=== PATIENT | female | born 1960 | race Caucasian/White ===

== ENCOUNTER 2016-08-07 15:30 | Outpatient (RCR) | payer OTHER ==
[~2016-08-07 15:30] MED LIST: ESTRACE0.5 MG PO; LOMOTIL 0.025 M1 TAB PO; NASONEX SPRAY17 GM NAS; PRILOSEC 20MG20 MG PO; PROBIOTICA100 Milli1 PO; ZYRTEC 10MG10 MG PO
== END 2016-09-05 09:01 | disposition home or self-care (01) ==
LOC: MKS.ESL.PT 15:30
DX: M76.30 Iliotibial band syndrome, unspecified leg (principal); M70.71 Other bursitis of hip, right hip

== ENCOUNTER → 2017-06-12 | Outpatient (CLI) | payer BC | LOC: MC.RAD 14:50 | DX: Z12.31 Encounter for screening mammogram for malignant neoplasm of breast (principal) ==

== ENCOUNTER → 2017-08-17 | Outpatient (REF) | LOC: ZLAB.WCH 17:59 | DX: Z01.89 Encounter for other specified special examinations (principal) ==

== ENCOUNTER → 2018-08-16 | Outpatient (CLI) | payer BC | LOC: MC.RAD 06-14 15:00 | DX: Z12.31 Encounter for screening mammogram for malignant neoplasm of breast (principal) ==

== ENCOUNTER → 2018-08-23 | Outpatient (REF) | LOC: ZLAB.WCH 08:43 | DX: Z01.89 Encounter for other specified special examinations (principal) ==

== ENCOUNTER 2019-04-25 16:52 | Emergency (ER) | payer BC ==
[~2019-04-25] VITALS: Ht 165.1 cm; Wt 70.0 kg
[2019-04-25 17:02] VITALS: BP 135/61; TEMP 97.6
[2019-04-25] MEDS ORDERED: NORCO 325 MG-51 TAB PO (17:37)
[2019-04-25 18:13] VITALS: PULSE 72
== END 2019-04-25 18:13 | disposition home or self-care (01) ==
LOC: COL.ER 16:52
DX: S92.411A Displaced fracture of proximal phalanx of right great toe, initial encounter for closed fracture (principal); W20.8XXA Other cause of strike by thrown, projected or falling object, initial encounter; Y92.39 Other specified sports and athletic area as the place of occurrence of the external cause